=== PATIENT | male | born 1965 | race Caucasian/White ===

== ENCOUNTER → 2017-05-26 | Outpatient (REF) | payer BC ==
[~2017-05-26] MED LIST: /CELE20CA PO; /HCTZ25TA PO; ANEX75TA PO; AVAP150T PO; BISO10TA6 PO; CEPH2CAP PO; DIOV320T PO; LABETALOL PO; LEVO2.5S PO; VICO5TAB PO; [UNRECOGNIZED DRUG - OTHER] PO
== END ==
LOC: M LAB REF 14:02
PROVIDERS: ATTEND Family Medicine
DX: M10.9 Gout, unspecified (principal)

== ENCOUNTER → 2017-05-28 | Outpatient (CLI) | payer BC ==
[~2017-05-28] MED LIST changes: +ISOVUE-370 76% 100ML VIAL (Q9967) As Ordered ONE
--- NOTE | 2017-05-28 13:20 | REP ---
CT of the chest with IV contrast: The study is performed as a thoracic aorta. CT angiogram: There are no comparison chest CT studies. The ascending thoracic aorta measures 3.9 cm in diameter. The mid The mid the isthmus measures 3.2 cm in diameter. The proximal descending thoracic aorta measures 3.1 cm in diameter. This tapers to 2.5 cm in diameter at the diaphragmatic hiatus. There is no thoracic aorta dissection. There appear to be nodules both right and left lobes of the thyroid. Follow-up thyroid ultrasound might be considered. There is no mediastinal adenopathy or mass. There is no hilar adenopathy or mass. No axillary adenopathy or mass. There are no infiltrates, effusions, nodules or masses. Cardiac size is normal. There is no pericardial effusion. The visualized upper abdominal contents demonstrate a 1.7 cm cyst inferiorly in the right lobe of the livers. The visualized portions of the gallbladder, pancreas and spleen are unremarkable. The adrenals are unremarkable. Impression: The ascending thoracic aorta is dilated. The remainder of the thoracic aorta is normal size. There are two tiny calcific plaques in the descending thoracic aorta. There is a small hiatal hernia. There is a small hepatic cyst. There are nodules in the thyroid. Consider thyroid ultrasound. Signed by Hunter Benjamin MD 05/28/2017 10:27 A
== END ==
LOC: M RAD 08:12
PROVIDERS: ATTEND Internal Medicine Cardiovascular Disease
DX: I71.2 Thoracic aortic aneurysm, without rupture (principal); K44.9 Diaphragmatic hernia without obstruction or gangrene; K76.89 Other specified diseases of liver; E04.1 Nontoxic single thyroid nodule
CPT/HCPCS: 71260; Q9967

== ENCOUNTER → 2017-07-01 | Outpatient (CLI) | payer BC ==
[~2017-07-01] MED LIST changes: -ISOVUE-370 76% 100ML VIAL (Q9967) As Ordered ONE
[2017-07-01 12:32] LABS: ALBUMIN/GLOBULIN RATIO 1.18 (1.00-1.93); ALKALINE PHOSPHATASE 74 U/L (45-117); ALT/SGPT 26 U/L (12-78); ANION GAP 4 MEQ/L (8-16); AST/SGOT 16 U/L (15-37); BILIRUBIN,TOTAL 4.3 MG/DL (0.2-1.0); BLOOD UREA NITROGEN 14 MG/DL (7-18); CALCIUM LEVEL 9.2 MG/DL (8.5-10.1); CARBON DIOXIDE LEVEL 31 MEQ/L (21-32); CHLORIDE LEVEL 98 MEQ/L (98-107); CREATININE FOR GFR 1.14 MG/DL (0.70-1.30); GLOMERULAR FILTRATION RATE > 60.0 (>56); GLUCOSE, FASTING 114 MG/DL (70-105); POTASSIUM SERUM 4.4 MEQ/L (3.5-5.1); SODIUM LEVEL 133 MEQ/L (136-145); TOTAL PROTEIN 7.4 GM/DL (6.4-8.2)
[2017-07-01 13:26] LABS: BASO % 0.2 % (0.0-1.0); EOS # 0.1 K/mm3 (0.0-0.50); EOS % 1.2 % (0.0-3.0); LARGE UNSTAINED CELL # 0.1 K/mm3 (0.0-0.4); LARGE UNSTAINED CELL % 1.5 % (0.0-4.0); LYMPH # 1.6 K/mm3 (1.5-4.5); LYMPH % 20.3 % (24.0-44.0); MEAN CORPUSCULAR HEMOGLOBIN 30.6 pg (27.0-33.0); MEAN CORPUSCULAR VOLUME 82.1 fl (80.0-96.0); MONO # 0.5 K/mm3 (0.0-0.8); MONO % 6.8 % (0.0-5.0); NEUTROPHILS # 5.4 K/mm3 (1.8-7.7); PLATELET COUNT, AUTOMATED 174 k/mm3 (150-450); RED CELL DISTRIBUTION WIDTH 13.9 % (11.5-14.5); WHITE BLOOD COUNT 7.7 K/mm3 (4.0-10.0)
[2017-07-01 13:35] LABS: MEAN CORPUSCULAR HGB CONC 37.3 g/dl (32.0-36.5)
== END ==
LOC: M LAB 11:29
PROVIDERS: ATTEND Family Medicine
DX: R68.83 Chills (without fever) (principal); R60.9 Edema, unspecified

== ENCOUNTER → 2018-04-17 | Outpatient (CLI) | payer BC | LOC: M ADAMS 16:25 | DX: S89.302A Unspecified physeal fracture of lower end of left fibula, initial encounter for closed fracture (principal); X58.XXXA Exposure to other specified factors, initial encounter; Y92.9 Unspecified place or not applicable | CPT/HCPCS: 73610 ==

== ENCOUNTER → 2019-01-05 | Outpatient (REF) | payer BC | LOC: M LAB REF 09:03 | PROVIDERS: ATTEND Surgery | DX: D23.72 Other benign neoplasm of skin of left lower limb, including hip (principal) ==

== ENCOUNTER → 2019-03-14 | Outpatient (CLI) | payer BC ==
[~2019-03-14] MED LIST changes: -/CELE20CA PO; -/HCTZ25TA PO; +CELE1CAP4 PO; +HYDR-3644 PO
[2019-03-14 18:43] LABS: BASO # 0.1 10^3/uL (0.0-0.2); BASO % 0.5 % (0.0-1.0); EOS # 0.1 10^3/uL (0.0-0.50); EOS % 1.4 % (0.0-3.0); HEMATOCRIT 45.3 % (42.0-52.0); HEMOGLOBIN 15.6 g/dl (13.5-17.5); LYMPH % 32.4 % (24.0-44.0); MEAN CORPUSCULAR HEMOGLOBIN 29.5 pg (27.0-33.0); MEAN CORPUSCULAR HGB CONC 34.4 g/dl (32.0-36.5); MEAN CORPUSCULAR VOLUME 85.8 fl (80.0-96.0); MONO # 0.7 10^3/uL (0.0-0.8); MONO % 7.9 % (0.0-5.0); NEUTROPHILS # 5.3 10^3/uL (1.8-7.7); NEUTROPHILS % 57.2 % (36.0-66.0); PLATELET COUNT, AUTOMATED 200 10^3/uL (150-450); RED BLOOD COUNT 5.28 10^6/uL (4.30-6.10); WHITE BLOOD COUNT 9.3 10^3/uL (4.0-10.0)
[2019-03-14 19:20] LABS: MALB URINE SIEMENS 8.8 MG/L; MAU/CREAT RATIO 7.2 MCG/MG (0.0-30.0)
[2019-03-14 19:21] LABS: ALBUMIN 3.8 GM/DL (3.2-5.2); ALT/SGPT 28 U/L (12-78); BILIRUBIN,TOTAL 1.3 MG/DL (0.2-1.0); BLOOD UREA NITROGEN 24 MG/DL (7-18); CALCIUM LEVEL 8.5 MG/DL (8.5-10.1); CARBON DIOXIDE LEVEL 25 MEQ/L (21-32); CHLORIDE LEVEL 103 MEQ/L (98-107); CHOLESTEROL LEVEL 155 MG/DL (<200); CHOLESTEROL RISK RATIO 4.189 (<5); CREATININE FOR GFR 1.15 MG/DL (0.70-1.30); GLOMERULAR FILTRATION RATE > 60.0 (>56); GLUCOSE, FASTING 102 MG/DL (70-100); HDL CHOLESTEROL 37 MG/DL (>40); LDL CHOLESTEROL 78 MG/DL (<100); NON-HDL-C 118 MG/DL; POTASSIUM SERUM 4.2 MEQ/L (3.5-5.1); SODIUM LEVEL 135 MEQ/L (136-145); TOTAL PROTEIN 7.4 GM/DL (6.4-8.2); TRIGLYCERIDES LEVEL 202 MG/DL (<150); URIC ACID 7.1 MG/DL (3.5-7.2)
[2019-03-14 19:36] LABS: HEMOGLOBIN A1c 6.6 %
== END ==
LOC: M LAB 17:04
PROVIDERS: ATTEND Family Medicine
DX: E78.5 Hyperlipidemia, unspecified (principal); E11.9 Type 2 diabetes mellitus without complications; M10.9 Gout, unspecified

== ENCOUNTER → 2020-09-28 | Outpatient (REF) | payer BC | LOC: M LAB REF 12:04 | PROVIDERS: ATTEND Family Medicine | DX: M10.9 Gout, unspecified (principal) ==

== ENCOUNTER → 2021-01-30 | Outpatient (REF) | payer BC | LOC: M LAB REF 16:11 | PROVIDERS: ATTEND Family Medicine | DX: M10.9 Gout, unspecified (principal) ==

== ENCOUNTER → 2021-06-28 | Outpatient (REF) | payer BC | LOC: M LAB REF 11:57 | PROVIDERS: ATTEND Family Medicine | DX: M10.9 Gout, unspecified (principal) ==

== ENCOUNTER → 2022-02-19 | Outpatient (REF) | payer BC | LOC: M LAB REF 12:25 | PROVIDERS: ATTEND Family Medicine | DX: M10.9 Gout, unspecified (principal) ==

== ENCOUNTER → 2023-11-02 | Outpatient (REF) | payer BC | LOC: M LAB REF 11:54 | PROVIDERS: ATTEND Family Medicine | DX: N52.9 Male erectile dysfunction, unspecified (principal) ==

== ENCOUNTER → 2023-12-14 | Outpatient (REF) | payer BC ==
[2023-12-14 19:15] LABS: URIC ACID 6.1 MG/DL (3.7-9.2)
== END ==
LOC: M LAB REF 18:00
PROVIDERS: ATTEND Family Medicine
DX: R94.5 Abnormal results of liver function studies (principal); E80.4 Gilbert syndrome; M10.9 Gout, unspecified

== ENCOUNTER → 2024-05-05 | Outpatient (REF) | payer BC | LOC: M LAB REF 16:41 | PROVIDERS: ATTEND Family Medicine | DX: I25.10 Atherosclerotic heart disease of native coronary artery without angina pectoris (principal) ==

== ENCOUNTER → 2024-05-12 | Outpatient (CLI) | payer BC | LOC: M PLALAB 13:49 | PROVIDERS: ATTEND Nurse Practitioner Acute Care | DX: I25.110 Atherosclerotic heart disease of native coronary artery with unstable angina pectoris (principal) ==

== ENCOUNTER → 2024-05-25 | Outpatient (CLI) | payer BC ==
[2024-05-25 12:10] LABS: BLOOD UREA NITROGEN 23 MG/DL (9-23); CALCIUM LEVEL 8.9 MG/DL (8.3-10.6); CARBON DIOXIDE LEVEL 28 MMOL/L (20-31); CHLORIDE LEVEL 101 MMOL/L (98-107); CREATININE FOR GFR 1.07 MG/DL (0.70-1.30); GLOMERULAR FILTRATION RATE > 60.0 (>49); GLUCOSE, FASTING 159 MG/DL (74-106); POTASSIUM SERUM 3.9 MMOL/L (3.5-5.1); SODIUM LEVEL 132 MMOL/L (136-145)
== END ==
LOC: M PLALAB 07:49
PROVIDERS: ATTEND Nurse Practitioner Acute Care
DX: I25.110 Atherosclerotic heart disease of native coronary artery with unstable angina pectoris (principal)

== ENCOUNTER → 2024-10-14 | Outpatient (REF) | payer BC | LOC: M LAB REF 11:38 | PROVIDERS: ATTEND Family Medicine | DX: E29.1 Testicular hypofunction (principal); I25.10 Atherosclerotic heart disease of native coronary artery without angina pectoris ==

== ENCOUNTER → 2024-10-19 | Outpatient (CLI) | payer BC | LOC: M WUC 09:12 | PROVIDERS: ATTEND Family Medicine | DX: M43.04 Spondylolysis, thoracic region (principal) ==

== ENCOUNTER → 2024-11-16 | Outpatient (CLI) | payer BC ==
[~2024-11-16] MED LIST changes: +ISOVUE-370 76% 100ML VIAL As Ordered ONE
== END ==
LOC: M RAD 14:35
PROVIDERS: ATTEND Internal Medicine Cardiovascular Disease
DX: I25.118 Atherosclerotic heart disease of native coronary artery with other forms of angina pectoris (principal); I71.20 Thoracic aortic aneurysm, without rupture, unspecified; R07.9 Chest pain, unspecified

== ENCOUNTER → 2025-01-26 | Outpatient (CLI) | payer BC ==
[~2025-01-26] MED LIST changes: -ISOVUE-370 76% 100ML VIAL As Ordered ONE
== END ==
LOC: M RAD 08:09
PROVIDERS: ATTEND Family Medicine
DX: D37.6 Neoplasm of uncertain behavior of liver, gallbladder and bile ducts (principal)